=== PATIENT | female | born 1975 | race American Indian/Alaskan Native ===

== ENCOUNTER 2017-11-22 15:14 | Emergency (ER) | payer BC ==
[2017-11-22 15:38] VITALS: BP 160/94
--- NOTE | 2017-11-22 16:06 | XRay Report ---
FINAL REPORT EXAM: XR WRIST BILAT 3+V HISTORY: wrist injury TECHNIQUE: Four views of each wrist were performed Comparison: None FINDINGS: Normal bony mineralization. No fracture or dislocation identified. Ulnar neutral variant. Radiocarpal spaces and carpal arcs are intact. Mildly motion degraded right oblique image. No definite soft tissue swelling. IMPRESSION: No definite acute wrist plain film abnormality. Specifically, no definite fracture or dislocation identified.
--- NOTE | 2017-11-22 17:47 | Emergency Department Report ---
Upper Extremity - HPI Chief Complaint: Extremity Injury, Upper Stated Complaint: ARM AND STOMACH PAIN Time Seen by Provider: 11/22/17 17:16 Upper Extremity: Left Wrist, Right Wrist Occurred When: >5 Days (several weeks) Severity: mild Symptoms: Yes Pain with Movement, No Deformity, No Limited Range of Movement, No Numbness, No Weakness, No Swelling, No Bruising/Ecchymosis, No Laceration or Abrasion Other History: 42-year-old female past medical history hypertension presents with complaint of bilateral wrist discomfort for several weeks to months. 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 Pain is worse at night or in the morning. States it is worse after working. Patient denies any direct trauma to the hands or wrists no recent falls. Denies any weakness but states that the pain and tingling and pins and needle sensation is primarily what bothers her. Patient is right handed. ED Review of Systems ROS: Stated complaint: ARM AND STOMACH PAIN Other details as noted in HPI Constitutional: denies: chills, fever Eyes: denies: eye pain, eye discharge, vision change ENT: denies: ear pain, throat pain Respiratory: denies: cough, shortness of breath, wheezing Cardiovascular: denies: chest pain, palpitations Endocrine: no symptoms reported Gastrointestinal: denies: abdominal pain, nausea, diarrhea Genitourinary: denies: urgency, dysuria, discharge Musculoskeletal: as per HPI. denies: back pain, joint swelling, arthralgia Skin: denies: rash, lesions Neurological: denies: headache, weakness, paresthesias Psychiatric: denies: anxiety, depression Hematological/Lymphatic: denies: easy bleeding, easy bruising ED Past Medical Hx - Past Medical History Previous Medical History?: No - Surgical History Past Surgical History?: No - Social History Smoking Status: Never Smoker Substance Use Type: None - Medications Home Medications: Home Medications Medication Instructions Recorded Confirmed Last Taken Type Acetaminophen/Codeine [Tylenol 1 tab PO Q6H PRN #4 tab 11/22/17 Unknown Rx /Codeine # 3 tab] Ibuprofen [Motrin] 600 mg PO Q8H PRN #20 tablet 11/22/17 Unknown Rx Upper Extremity Exam - Exam General: Vital signs noted. No distress. Alert and acting appropriately. Head and Torso: No HEENT Abnormality, No Neck Tenderness, No Chest/Lungs Abnormality, No Abdominal Tenderness, No Back Tenderness Shoulder Exam: Yes Normal Range of Motion in Shoulder, No Shoulder Tenderness, No Clavicle Tenderness, No Shoulder Deformity, No AC Joint Tenderness Arm Exam: No Arm/Humerus Tenderness, No Arm Deformity Elbow: No Elbow Tenderness, No Normal Range of Motion in Elbow, No Elbow Deformity Forearm: No Forearm Tenderness, No Forearm Deformity, No Pain with Pronation, No Pain with Supination Wrist: Yes Normal ROM in Wrist (flexion and extension clinically intact to both wrists), No Wrist Tenderness (positive Phalen and Tinel sign wrists bilaterally) , No Wrist Deformity, No Snuffbox Tenderness, No Pain with Axial Thumb Compression Hand: Yes Normal ROM in Digit(s) (range of motion all fingers intact bilateral hands and PIPs and MCPs and DIPs. Lumbricals intact.), No Hand Tenderness, No Hand Deformity, No Digit Tenderness, No Digit(s) Deformity, No Tendon Dysfunction CMS Exam: Yes Normal Distal Pulses, Yes Normal Capillary Refill, Yes Normal Distal Sensation, No Broken Skin ED Course Vital Signs 11/22/17 15:35 Temperature 98 F Pulse Rate 85 Respiratory 16 Rate Blood Pressure 160/94 O2 Sat by Pulse 95 Oximetry ED Medical Decision Making - Medical Decision Making A/P: Bilateral carpal tunnel syndrome 1- Pt provided with right wrist splint as she states it is slightly worse symptoms on right wrist. Left wrist dexter wrap, RICE therapy 2- Motrin when necessary, 3-follow up with primary care and orthopedics Critical care attestation.: If time is entered above; I have spent that time in minutes in the direct care of this critically ill patient, excluding procedure time. ED Disposition Clinical Impression: Carpal tunnel syndrome on both sides Disposition: DC- TO HOME OR SELFCARE Is pt being admited?: No Does the pt Need Aspirin: No Condition: Stable Instructions: Carpal Tunnel Syndrome (ED), RICE Therapy (ED) Prescriptions: Acetaminophen/Codeine [Tylenol /Codeine # 3 tab] 1 tab PO Q6H PRN #4 tab PRN Reason: Pain Ibuprofen [Motrin] 600 mg PO Q8H PRN #20 tablet PRN Reason: Pain Referrals: [facility] [Provider Group] - 3-5 Days [facility] [Provider Group] - 3-5 Days Forms: Work/School Release Form(ED) Time of Disposition: 17:46
== END 2017-11-22 17:56 | disposition home or self-care (01) ==
LOC: ED 15:14
DX: G56.03 Carpal tunnel syndrome, bilateral upper limbs (principal)
CPT/HCPCS: 99283

== ENCOUNTER 2018-01-30 12:51 | Emergency (ER) | payer BC ==
[2018-01-30 13:19] VITALS: BP 134/94
[2018-01-30] MEDS ORDERED: TORADOL IM ONE (13:32)
--- NOTE | 2018-01-30 13:36 | Emergency Department Report ---
HPI - General Chief Complaint: Pain General Time Seen by Provider: 01/30/18 13:27 - HPI HPI: 42-year-old Burkin[place] female presents to the emergency department with complaint of right wrist pain with radiation to the hand and up the right arm. She has a history of carpal tunnel, diagnosed in November, and has been using a wrist splint as needed. She has an appointment coming up with [facility] orthopedics on Thursday, 6 days. The patient works here at [employer] and says that she has been having to use the affected right wrist and arm to do her job and it seems to be exacerbating her discomfort. She gets some sharp shooting pains in the arm and occasionally some numbness in the fingers. She is otherwise not taken anything for her symptoms prior presentation. ED Past Medical Hx - Past Medical History Hx Hypertension: Yes - Surgical History Past Surgical History?: No - Social History Smoking Status: Never Smoker Substance Use Type: None - Medications Home Medications: Home Medications Medication Instructions Recorded Confirmed Last Taken Type Acetaminophen/Codeine [Tylenol 1 tab PO Q6H PRN #4 tab 11/22/17 Unknown Rx /Codeine # 3 tab] Ibuprofen [Motrin] 600 mg PO Q8H PRN #20 tablet 11/22/17 Unknown Rx HYDROcodone/APAP 5-325 [[place] 1 each PO Q8H PRN #15 tablet 01/30/18 Unknown Rx 5/325] ED Review of Systems ROS: Stated complaint: RIGHT WRIST/HAND PAIN Other details as noted in HPI Comment: All other systems reviewed and negative Constitutional: denies: chills, fever Eyes: denies: eye pain, eye discharge, vision change ENT: denies: ear pain, throat pain Respiratory: denies: cough, shortness of breath, wheezing Cardiovascular: denies: chest pain, palpitations Gastrointestinal: denies: abdominal pain, nausea, diarrhea Genitourinary: denies: urgency, dysuria, discharge Musculoskeletal: arthralgia, myalgia. denies: joint swelling Skin: denies: rash, lesions Neurological: numbness. denies: headache Physical Exam - Physical Exam Vital Signs: Vital Signs 01/30/18 13:13 Temperature 99.1 F Pulse Rate 66 Respiratory 18 Rate Blood Pressure 134/94 O2 Sat by Pulse 100 Oximetry ED Course Vital Signs 01/30/18 13:13 Temperature 99.1 F Pulse Rate 66 Respiratory 18 Rate Blood Pressure 134/94 O2 Sat by Pulse 100 Oximetry Critical care attestation.: If time is entered above; I have spent that time in minutes in the direct care of this critically ill patient, excluding procedure time. ED Disposition Clinical Impression: Carpal tunnel syndrome on right Disposition: DC-01 TO HOME OR SELFCARE Is pt being admited?: No Condition: Stable Instructions: Carpal Tunnel Syndrome (ED) Additional Instructions: Please follow-up with your orthopedist on Thursday as previously scheduled but I do recommend trying to move up your appointment. Please try and limit the use of your right wrist and arm and I will continue to use the splint as needed. Return to the emergency Department with any worsening of your symptoms or any acute distress. You have been prescribed a medication that is sedating and therefore should not be taken prior to driving, working, and responsible for children and in no way should be mixed with alcohol of any quantity. Prescriptions: HYDROcodone/APAP 5-325 [[place] 5/325] 1 each PO Q8H PRN #15 tablet PRN Reason: Pain Referrals: [facility] [Provider Group] - 3-5 Days Time of Disposition: 13:36
== END 2018-01-30 13:48 | disposition home or self-care (01) ==
LOC: ED 12:51
DX: G56.01 Carpal tunnel syndrome, right upper limb (principal); I10 Essential (primary) hypertension
CPT/HCPCS: 96372; 99282; J1885

== ENCOUNTER 2018-03-19 18:02 | Emergency (ER) | payer SELFPAY ==
[2018-03-19 18:33] VITALS: BP 144/93
--- NOTE | 2018-03-19 20:54 | Emergency Department Report ---
Upper Extremity - [facility] Chief Complaint: Extremity Injury, Upper Stated Complaint: RT WRIST PAIN/INJURY Time Seen by Provider: 03/19/18 20:53 Upper Extremity: Right Wrist Occurred When: >5 Days (4 months) Severity: severe Symptoms: Yes Pain with Movement, No Deformity, No Limited Range of Movement, No Numbness, No Weakness, No Swelling, No Bruising/Ecchymosis Other History: 42-year-old -[place] female with a past medical history of hypertension comes in complaining of right wrist pain for several months. Patient was diagnosed with carpal tunnel syndrome back in November 2017. Patient was also referred to orthopedics on 02/01/2018. Patient reports that she has taken [id number] ibuprofen one tablet. 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 She also complains of wrist pain in the morning when she wakes up as well. Patient denies any trauma to her wrist no recent falls. ED Review of Systems ROS: Stated complaint: RT WRIST PAIN/INJURY Other details as noted in HPI ED Past Medical Hx - Past Medical History Hx Hypertension: Yes - Surgical History Past Surgical History?: No - Social History Smoking Status: Never Smoker Substance Use Type: None - Medications Home Medications: Home Medications Medication Instructions Recorded Confirmed Last Taken Type Acetaminophen/Codeine [Tylenol 1 tab PO Q6H PRN #4 tab 11/22/17 Unknown Rx /Codeine # 3 tab] Ibuprofen [Motrin] 600 mg PO Q8H PRN #20 tablet 11/22/17 Unknown Rx HYDROcodone/APAP 5-325 [[place] 1 each PO Q8H PRN #15 tablet 01/30/18 Unknown Rx 5/325] Ibuprofen [Motrin 800 MG tab] 800 mg PO Q8HR #30 tablet 03/19/18 Unknown Rx Upper Extremity Exam - Exam General: Vital signs noted. No distress. Alert and acting appropriately. ED Course Vital Signs 03/19/18 18:31 Temperature 98.5 F Pulse Rate 80 Respiratory 16 Rate Blood Pressure 144/93 O2 Sat by Pulse 100 Oximetry ED Medical Decision Making - Medical Decision Making Patient has been evaluated by this provider in fast track. This is a chronic issue I have referred patient to orthopedist. Prescription given for ibuprofen 800 mg every 8 when necessary as needed. Patient has wrist brace at home. Encourage patient to use the wrist brace. Critical care attestation.: If time is entered above; I have spent that time in minutes in the direct care of this critically ill patient, excluding procedure time. ED Disposition Clinical Impression: Carpal tunnel syndrome on right Disposition: DC-01 TO HOME OR SELFCARE Is pt being admited?: No Does the pt Need Aspirin: No Condition: Stable Additional Instructions: Take pain medication as prescribed. Wear wrist splint as needed. Follow-up with orthopedist I have listed several below for your convenience. Prescriptions: Ibuprofen [Motrin 800 MG tab] 800 mg PO Q8HR #30 tablet Referrals: PRIMARY CAREMD [Primary Care Provider] - 3-5 Days BRITTANY BRAUN MD [Staff Physician] - 3-5 Days [facility] [Provider Group] - 3-5 Days Forms: Work/School Release Form(ED)
[2018-03-19] MEDS ORDERED: MOTRIN ONE (20:55)
[2018-03-19] MEDS ORDERED: MOTRIN PO ONE (21:03)
== END 2018-03-19 21:30 | disposition home or self-care (01) ==
LOC: ED 18:02
DX: G56.01 Carpal tunnel syndrome, right upper limb (principal); I10 Essential (primary) hypertension
CPT/HCPCS: 99282

== ENCOUNTER 2019-04-04 08:46 | Emergency (ER) | payer SELFPAY ==
[2019-04-04 09:28] LABS: BUN/Creatinine Ratio 15; Blood Urea Nitrogen 12 mg/dL (7-17); Calcium 9.1 mg/dL (8.4-10.2); Hematocrit 36.5 % (30.3-42.9); Hemoglobin 12.3 gm/dl (10.1-14.3); Hemolysis Index 4; Mean Corpuscular HGB Conc 34 % (30-34); Mean Corpuscular Volume 92 fl (79-97); Platelet Count 428 K/mm3 (140-440); Red Blood Count 3.99 M/mm3 (3.65-5.03); Red Cell Distribution Width 13.4 % (13.2-15.2)
[2019-04-04 10:22] LABS: Basophils % (Manual) 0 % (0.0-1.8); Platelet Estimate Consistent w Auto; RBC Morphology Normal; Total Cells Counted 100
[2019-04-04] MEDS ORDERED: DUONEB *Not for PRN Use IH ONE (10:23)
[2019-04-04] MEDS ORDERED: VIBRAMYCIN PO ONE (10:23)
[2019-04-04] MEDS ORDERED: DELTASONE PO ONE (10:23)
--- NOTE | 2019-04-04 10:27 | Emergency Department Report ---
ED Shortness of Breath HPI - General Chief Complaint: Chest Pain Stated Complaint: CHEST PAIN/DORA Time Seen by Provider: 04/04/19 10:09 Source: patient Mode of arrival: Ambulatory Limitations: No Limitations - History of Present Illness Initial Comments: Mrs. Reed is a 43 yo female with hx of HTN and depression who presents with dyspnea and chest tightness. At night, she is unable to lay flat. She has noted some wheezing. No cough. She is concerned for possible asthma. She does not smoke tobacco. The chest tightness Improves when she takes a deep breath. Moderate symptoms. MD Complaint: shortness of breath, "asthma attack" -: Gradual, week(s) (1) Severity: moderate Quality: dull Consistency: intermittent Improves With: rest, other (deep breath) Worsens With: lying flat Known History Of: other (no previous hx) Associated Symptoms: other (nasal congestion) - Related Data Previous Rx's Medication Instructions Recorded Last Taken Type Amoxicillin 500 mg PO BID #20 capsule 08/23/18 Unknown Rx ALBUTEROL Inhaler (OR & NICU) 2 puff IH QID PRN #1 device 04/04/19 Unknown Rx [ProAir HFA Inhaler] DOXYCYCLINE Hyclate [Vibramycin 100 mg PO Q12HR 7 Days #14 capsule 04/04/19 Unknown Rx CAP] predniSONE [Deltasone] 3 tab PO QDAY 4 Days #12 tab 04/04/19 Unknown Rx Allergies Allergy/AdvReac Type Severity Reaction Status Date / Time No Known Allergies Allergy Verified 11/22/17 15:34 ED Review of Systems ROS: Stated complaint: CHEST PAIN/DORA Other details as noted in HPI Comment: Unobtainable due to pts medical conditions Constitutional: malaise Respiratory: shortness of breath, wheezing Cardiovascular: chest pain. denies: palpitations Gastrointestinal: denies: abdominal pain, nausea, vomiting ED Past Medical Hx - Past Medical History Previous Medical History?: Yes Hx Hypertension: Yes Hx Psychiatric Treatment: Yes (DEPRESSION) - Surgical History Past Surgical History?: Yes Additional Surgical History: carpel tunnel right wrist - Social History Smoking Status: Never Smoker Substance Use Type: None - Medications Home Medications: Home Medications Medication Instructions Recorded Confirmed Last Taken Type Amoxicillin 500 mg PO BID #20 capsule 08/23/18 Unknown Rx ALBUTEROL Inhaler (OR & NICU) 2 puff IH QID PRN #1 device 04/04/19 Unknown Rx [ProAir HFA Inhaler] DOXYCYCLINE Hyclate [Vibramycin 100 mg PO Q12HR 7 Days #14 capsule 04/04/19 Unknown Rx CAP] predniSONE [Deltasone] 3 tab PO QDAY 4 Days #12 tab 04/04/19 Unknown Rx ED Physical Exam - General Limitations: No Limitations General appearance: alert, in no apparent distress, other (ambulatory without difficulty, speaking full sentences) - Head Head exam: Present: atraumatic, normocephalic - Eye Eye exam: Present: normal appearance - ENT ENT exam: Present: mucous membranes moist - Neck Neck exam: Present: normal inspection - Respiratory Respiratory exam: Present: wheezes, rales, rhonchi, prolonged expiratory. Absent: respiratory distress, chest wall tenderness, accessory muscle use, decreased breath sounds - Cardiovascular Cardiovascular Exam: Present: regular rate, normal rhythm, normal heart sounds. Absent: systolic murmur, diastolic murmur, rubs, gallop - GI/Abdominal GI/Abdominal exam: Present: soft, normal bowel sounds. Absent: distended, tenderness, guarding, rebound - Extremities Exam Extremities exam: Present: normal inspection - Back Exam Back exam: Present: normal inspection - Neurological Exam Neurological exam: Present: alert, oriented X3 - Psychiatric Psychiatric exam: Present: normal affect, normal mood - Skin Skin exam: Present: warm, dry, intact, normal color. Absent: rash ED Course Vital Signs 04/04/19 04/04/19 08:52 10:22 Temperature 98.6 F Pulse Rate 64 Respiratory 20 17 Rate Blood Pressure 152/97 O2 Sat by Pulse 100 Oximetry ED Medical Decision Making - Lab Data Result diagrams: 04/04/19 08:57 04/04/19 08:57 Laboratory Results - last 24 hr 04/04/19 04/04/19 08:57 08:57 WBC 5.1 RBC 3.99 Hgb 12.3 Hct 36.5 MCV 92 MCH 31 MCHC 34 RDW 13.4 Plt Count 428 Lymph % (Auto) Museum Assistant Add Manual Diff Complete Total Counted 100 Seg Neutrophils % Museum Assistant Seg Neuts % (Manual) 34.0 L Band Neutrophils % 0 Lymphocytes % (Manual) 60.0 H Reactive Lymphs % (Man) 1.0 Monocytes % (Manual) 3.0 Eosinophils % (Manual) 2.0 Basophils % (Manual) 0 Metamyelocytes % 0 Myelocytes % 0 Promyelocytes % 0 Blast Cells % 0 Nucleated RBC % Not Reportable Seg Neutrophils # Man 1.7 L Band Neutrophils # 0.0 Lymphocytes # (Manual) 3.1 Abs React Lymphs (Man) 0.1 Monocytes # (Manual) 0.2 Eosinophils # (Manual) 0.1 Basophils # (Manual) 0.0 Metamyelocytes # 0.0 Myelocytes # 0.0 Promyelocytes # 0.0 Blast Cells # 0.0 WBC Morphology Not Reportable Hypersegmented Neuts Not Reportable Hyposegmented Neuts Not Reportable Hypogranular Neuts Not Reportable Smudge Cells Not Reportable Toxic Granulation Not Reportable Toxic Vacuolation Not Reportable Dohle Bodies Not Reportable Pelger-Huet Anomaly Not Reportable Babak Rods Not Reportable Platelet Estimate Consistent w auto Clumped Platelets Not Reportable Plt Clumps, EDTA Not Reportable Large Platelets Not Reportable Giant Platelets Not Reportable Platelet Satelliting Not Reportable Plt Morphology Comment Not Reportable RBC Morphology Normal Dimorphic RBCs Not Reportable Polychromasia Not Reportable Hypochromasia Not Reportable Poikilocytosis Not Reportable Anisocytosis Not Reportable Microcytosis Not Reportable Macrocytosis Not Reportable Spherocytes Not Reportable Pappenheimer Bodies Not Reportable Sickle Cells Not Reportable Target Cells Not Reportable Tear Drop Cells Not Reportable Ovalocytes Not Reportable Helmet Cells Not Reportable Harris-Chilo Bodies Not Reportable Swisher Rings Not Reportable Juliane Cells Not Reportable Bite Cells Not Reportable Crenated Cell Not Reportable Elliptocytes Not Reportable Acanthocytes (Spur) Not Reportable Rouleaux Not Reportable Hemoglobin C Crystals Not Reportable Schistocytes Not Reportable Malaria parasites Not Reportable Melquiades Bodies Not Reportable Hem Pathologist Commnt No Sodium 138 Potassium 3.7 Chloride 100.9 Carbon Dioxide 24 Anion Gap 17 BUN 12 Creatinine 0.8 Estimated GFR > 60 BUN/Creatinine Ratio 15 Glucose 109 H Calcium 9.1 Troponin T < 0.010 - EKG Data 04/04/19 10:25 EKG obtained 904 Normal sinus rhythm rate 70 beats a minute normal axis normal intervals no ST elevation no signs of ischemia normal T-wave pattern - Radiology Data Radiology results: report reviewed Chest x-ray no acute findings according to radiology report - Medical Decision Making Mrs. Brianna presents with dyspnea and wheezing. Notable abnormal lung exam. Differential diagnosis includes atypical pneumonia, bronchitis. No history of tobacco use. Prescribed albuterol, doxycycline, prednisone. Antibiotics were indicated due to severe symptoms. Critical care attestation.: If time is entered above; I have spent that time in minutes in the direct care of this critically ill patient, excluding procedure time. ED Disposition Clinical Impression: Acute bronchitis Disposition: DC- TO HOME OR SELFCARE Is pt being admited?: No Does the pt Need Aspirin: No Condition: Stable Instructions: Acute Bronchitis (ED) Prescriptions: predniSONE [Deltasone] 3 tab PO QDAY 4 Days #12 tab ALBUTEROL Inhaler (OR & NICU) [ProAir HFA Inhaler] 2 puff IH QID PRN #1 device PRN Reason: Shortness Of Breath DOXYCYCLINE Hyclate [Vibramycin CAP] 100 mg PO Q12HR 7 Days #14 capsule Referrals: DANIEL LINDA MD [Primary Care Provider] - 3-5 Days Forms: Work/School Release Form(ED)
--- NOTE | 2019-04-04 11:21 | XRay Report ---
CHEST 2 VIEWS INDICATION: wheezing dyspnea. COMPARISON: None FINDINGS: Support devices: None. Heart: Within normal limits. Lungs/pleura: No acute air space or interstitial disease. No pneumothorax. Additional findings: None. IMPRESSION: No acute findings. Signer Name: Magdiel Harper Jr, MD Signed: 04/04/2019 11:16 AM Workstation Name: [id number]
[2019-04-04 11:42] VITALS: BP 151/92
== END 2019-04-04 11:41 | disposition home or self-care (01) ==
LOC: ED 08:46
DX: J20.9 Acute bronchitis, unspecified (principal); I10 Essential (primary) hypertension; F32.9 Major depressive disorder, single episode, unspecified; Z98.890 Other specified postprocedural states; Z79.899 Other long term (current) drug therapy
CPT/HCPCS: 36415; 71046; 80048; 84484; 85007; 85025; 93005; 93010; 99284; J7512

== ENCOUNTER 2019-09-13 23:04 | Emergency (ER) | payer SELFPAY | END 2019-09-14 | disposition left against medical advice (07) | LOC: ED 23:04 | DX: R07.89 Other chest pain (principal); Z53.21 Procedure and treatment not carried out due to patient leaving prior to being seen by health care provider ==